=== PATIENT | male | born 1940 | race Caucasian/White ===

== ENCOUNTER 2016-12-20 07:11 | Outpatient (CLI) | payer MEDICARE ==
[2016-12-20 12:08] LABS: EOSINOPHILS # (AUTO) 0.1 10^3/uL (0.0-0.7); HCT - HEMATOCRIT 43.5 % (42.0-52.0); HGB - HEMOGLOBIN 14.8 g/dL (14.0-18.0); LYMPHOCYTES # (AUTO) 1.7 10^3/uL (1.5-3.5); LYMPHOCYTES % (AUTO) 33.4 %; MEAN CORPUSCULAR HEMOGLOBIN 32.5 pg (27.0-31.0); MEAN CORPUSCULAR HGB CONC 33.9 g/dL (32.0-36.0); MEAN CORPUSCULAR VOLUME 95.9 fL (80.0-94.0); MONOCYTES # (AUTO) 0.4 10^3/uL (0.0-1.0); NEUTROPHILS # (AUTO) 2.7 10^3/uL (1.5-6.6); NEUTROPHILS % (AUTO) 54.6 %; RED BLOOD COUNT 4.54 10^6/uL (4.70-6.10); RED CELL DISTRIBUTION WIDTH 12.7 % (12.0-15.0)
[2016-12-20 12:37] LABS: BILIRUBIN,TOTAL 0.9 mg/dL (0.2-1.0); CALCIUM 8.7 mg/dL (8.5-10.3); CREATININE 0.9 mg/dL (0.6-1.2); TOTAL PROTEIN 6.3 g/dL (6.7-8.2)
[2016-12-21 16:24] LABS: PSA FREE 0.863 ng/mL (0.16-2.81)
== END 2016-12-20 07:12 | disposition home or self-care (01) ==
LOC: LAB.F 07:11
PROVIDERS: ATTEND Internal Medicine
DX: R89.9 Unspecified abnormal finding in specimens from other organs, systems and tissues (principal); Z79.899 Other long term (current) drug therapy; Z12.5 Encounter for screening for malignant neoplasm of prostate
CPT/HCPCS: 36415; 80053; 84154; 85025; G0103; 84153

== ENCOUNTER 2017-06-12 10:03 | Outpatient (CLI) | payer MEDICARE ==
[2017-06-12 18:03] LABS: PSA FREE 0.739 ng/mL (0.16-2.81)
[2017-06-12 18:04] LABS: PSA TOTAL 2.676 ng/mL (0.000-2.000)
== END 2017-06-12 10:04 | disposition home or self-care (01) ==
LOC: LAB.F 10:03
PROVIDERS: ATTEND Internal Medicine
DX: R97.20 Elevated prostate specific antigen [PSA] (principal)
CPT/HCPCS: 36415; 84154

== ENCOUNTER 2018-02-03 07:23 | Outpatient (CLI) | payer MEDICARE ==
[2018-02-03 11:08] LABS: BASOPHILS % (AUTO) 0.6 %; EOSINOPHILS # (AUTO) 0.1 10^3/uL (0.0-0.7); EOSINOPHILS % (AUTO) 2.2 %; HGB - HEMOGLOBIN 14.1 g/dL (14.0-18.0); LYMPHOCYTES # (AUTO) 1.3 10^3/uL (1.5-3.5); MEAN CORPUSCULAR HEMOGLOBIN 33.1 pg (27.0-31.0); MEAN CORPUSCULAR VOLUME 94.4 fL (80.0-94.0); MEAN PLATELET VOLUME 8.9 fL (7.4-11.4); MONOCYTES # (AUTO) 0.4 10^3/uL (0.0-1.0); MONOCYTES % (AUTO) 10.4 %; NEUTROPHILS # (AUTO) 1.9 10^3/uL (1.5-6.6); NEUTROPHILS % (AUTO) 51.8 %; PLT - PLATELET COUNT 167 10^3/uL (130-450); RED BLOOD COUNT 4.25 10^6/uL (4.70-6.10); RED CELL DISTRIBUTION WIDTH 13.1 % (12.0-15.0); WHITE BLOOD COUNT 3.6 x10^3/uL (4.8-10.8)
[2018-02-03 11:26] LABS: ALBUMIN 4.1 g/dL (3.2-5.5); ALKALINE PHOSPHATASE 36 IU/L (42-121); ALT ALANINE AMINOTRANSFERASE 15 IU/L (10-60); AST ASPARTATE AMINOTRANSFERASE 20 IU/L (10-42); BUN - BLOOD UREA NITROGEN 16 mg/dL (6-20); CALCIUM 8.7 mg/dL (8.5-10.3); CARBON DIOXIDE - CO2 29 mmol/L (21-32); CHLORIDE 100 mmol/L (101-111); CHOL/HDL RATIO 2.4 (<5.0); CHOLESTEROL 194 mg/dL; CREATININE 0.8 mg/dL (0.6-1.2); GFR - MDRD 94 (>89); GLUCOSE 93 mg/dL (70-100); HDL CHOLESTEROL 82 mg/dL; SODIUM 137 mmol/L (135-145); TOTAL PROTEIN 6.1 g/dL (6.7-8.2)
[2018-02-03 11:38] LABS: PSA FREE 0.81 ng/mL (0.16-2.81)
[2018-02-03 11:39] LABS: PSA TOTAL 2.74 ng/mL (0.000-2.000)
[2018-02-03 11:50] LABS: LDL CHOLESTEROL,DIRECT 100 mg/dL; LDLD/HDL RATIO 1.2 (<3.6)
== END 2018-02-03 07:24 | disposition home or self-care (01) ==
LOC: LAB.F 07:23
PROVIDERS: ATTEND Internal Medicine
DX: R97.20 Elevated prostate specific antigen [PSA] (principal); R89.9 Unspecified abnormal finding in specimens from other organs, systems and tissues; E78.5 Hyperlipidemia, unspecified; C43.9 Malignant melanoma of skin, unspecified
CPT/HCPCS: 36415; 80053; 80061; 83721; 84154; 85025

== ENCOUNTER 2019-10-16 15:07 | Outpatient (CLI) | payer MEDICARE | END 2019-10-16 15:08 | disposition home or self-care (01) | LOC: COV 15:07 | PROVIDERS: ATTEND Family Medicine | DX: Z11.59 Encounter for screening for other viral diseases (principal) ==

== ENCOUNTER 2023-08-14 11:56 | Outpatient (CLI) | payer MEDICARE ==
[2023-08-14 15:39] LABS: BASOPHILS % (AUTO) 0.4 %; EOSINOPHILS # (AUTO) 0.1 10^3/uL (0.0-0.7); EOSINOPHILS % (AUTO) 1.8 %; HCT - HEMATOCRIT 40.7 % (42.0-52.0); HGB - HEMOGLOBIN 13.3 g/dL (14.0-18.0); LYMPHOCYTES # (AUTO) 1.5 10^3/uL (1.5-3.5); MEAN CORPUSCULAR HEMOGLOBIN 31.6 pg (27.0-31.0); MEAN CORPUSCULAR HGB CONC 32.7 g/dL (32.0-36.0); MEAN CORPUSCULAR VOLUME 96.7 fL (80.0-94.0); MEAN PLATELET VOLUME 10.8 fL (7.4-11.4); MONOCYTES # (AUTO) 0.5 10^3/uL (0.0-1.0); NEUTROPHILS # (AUTO) 2.5 10^3/uL (1.5-6.6); NEUTROPHILS % (AUTO) 54.6 %; PLT - PLATELET COUNT 185 10^3/uL (130-450); RED BLOOD COUNT 4.21 10^6/uL (4.70-6.10); RED CELL DISTRIBUTION WIDTH 12.8 % (12.0-15.0); WHITE BLOOD COUNT 4.5 x10^3/uL (4.8-10.8)
[2023-08-14 15:56] LABS: ALBUMIN 4.2 g/dL (3.2-5.5); ALBUMIN/GLOBULIN RATIO 1.9 (1.0-2.2); BILIRUBIN,TOTAL 0.4 mg/dL (0.2-1.0); CALCIUM 9.3 mg/dL (8.5-10.3); CREATININE 0.9 mg/dL (0.6-1.3); TOTAL PROTEIN 6.4 g/dL (6.4-8.9)
== END 2023-08-14 11:57 | disposition home or self-care (01) ==
LOC: LAB.S 11:56
PROVIDERS: ATTEND Internal Medicine
DX: Z51.81 Encounter for therapeutic drug level monitoring (principal); Z79.899 Other long term (current) drug therapy
CPT/HCPCS: 36415; 80053; 85025